=== PATIENT | female | born 1990 | race Caucasian/White ===

== ENCOUNTER 2017-05-02 20:08 | Inpatient (IN) | payer MEDICAID ==
[2017-05-02] MEDS ORDERED: HYDROCODONE/APAP (5/325) TAB PO (23:00)
[2017-05-02] MEDS ORDERED: METHYLERGONOVINE 0.2 MG INJ IM (23:00)
[2017-05-02] MEDS ORDERED: MISOPROSTOL 200 MCG TAB PR (23:00)
[2017-05-02] MEDS ORDERED: BUTORPHANOL 2 MG INJ IV (23:00)
[2017-05-02] MEDS ORDERED: OXYTOCIN 30 UNITS/LR 500 ML IV (23:00)
[2017-05-02] MEDS ORDERED: IBUPROFEN 600 MG TAB PO (23:00)
[2017-05-02] MEDS: LACTATED RINGER'S 1,000 ML IV (23:31)
[2017-05-02 23:42] LABS: ADD MAN DIFF? NO
[2017-05-02 23:50] LABS: BASOPHILS % 0.4 % (0.0-2.0); EOSINOPHILS # 0.1 10^3/ul (0.0-0.5); EOSINOPHILS % 0.8 % (0.0-7.0); HEMATOCRIT 38.6 % (37.0-47.0); HEMOGLOBIN 13.4 g/dl (12.0-16.0); LYMPHOCYTES # 3.4 10^3/ul (0.8-2.9); LYMPHOCYTES % 29.6 % (15.0-51.0); MEAN CORPUSCULAR HGB CONC 34.7 g/dl (32.0-37.0); MEAN CORPUSCULAR VOLUME 92.1 fl (82.0-101.0); MEAN PLATELET VOLUME 10.9 fl (7.4-10.4); MONOCYTES % 8.8 % (0.0-11.0); NEUTROPHIL # 6.7 10^3/ul (1.6-7.5); NEUTROPHILS % 59.5 % (39.0-77.0); PLATELET COUNT 140 10^3/UL (140-415); RED BLOOD COUNT 4.19 10^6/ul (4.20-5.40); RED CELL DISTRIBUTION WIDTH 13.1 % (11.5-14.5)
[2017-05-02 23:50] LABS: WHITE BLOOD COUNT 11.3 10^3/ul (4.8-10.8)
[2017-05-03] LABS: POSITIVE DIFF @See below
[2017-05-03 00:40] LABS: HEPATITIS B SURFACE ANTIGEN NEGATIVE (NEGATIVE)
[2017-05-03] MEDS: BUTORPHANOL 2 MG INJ IV (01:04)
[2017-05-03 03:45] LABS: INR 0.88; PT RATIO 0.9
[2017-05-03 03:48] LABS: PARTIAL THROMBOPLASTIN TIME 26.3 Sec (25.0-35.0)
[2017-05-03] MEDS: LACTATED RINGER'S 1,000 ML IV ×2 (07:28→09:43)
[2017-05-03] MEDS ORDERED: FENTAnyl 2MCG/ML-ROPIV 0.2% 100 ML (09:35)
[2017-05-03] MEDS: OXYTOCIN 30 UNITS/LR 500 ML IV ×3 (12:47→13:27)
[2017-05-03] MEDS: CARBOPROST 250 MCG INJ IM (12:48)
[2017-05-03] MEDS: LIDOCAINE 1% (MPF) 30 ML INJ INJ (13:28)
[2017-05-03] MEDS ORDERED: NALOXONE (0.4 MG/ML) INJ IV (14:00)
[2017-05-03] MEDS: FENTAnyl 2MCG/ML-ROPIV 0.2% 100 ML BAG EPI (14:21)
[2017-05-03 15:06] LABS: RAPID PLASMA REAGIN NONREACTIVE (NR)
[2017-05-03] MEDS: LACTATED RINGER'S 1,000 ML IV* (15:54)
[2017-05-03] MEDS ORDERED: ZOLPIDEM 5 MG TAB PO (16:00)
[2017-05-03] MEDS ORDERED: HYDROCODONE/APAP (5/325) TAB PO ×2 (16:00)
[2017-05-03] MEDS ORDERED: MISOPROSTOL 200 MCG TAB PR (16:00)
[2017-05-03] MEDS ORDERED: DIBUCAINE 1% 30 GM OINT TOP (16:00)
[2017-05-03] MEDS ORDERED: METHYLERGONOVINE 0.2 MG INJ IM (16:00)
[2017-05-03] MEDS ORDERED: OXYTOCIN 30 UNITS/LR 500 ML IV (16:00)
[2017-05-03] MEDS ORDERED: CARBOPROST 250 MCG INJ IM (16:00)
[2017-05-03] MEDS: BENZOCAINE 20% 56 ML SPRAY TOP (16:52)
[2017-05-03] MEDS: WITCH HAZEL/GLYCERIN PAD PR (16:52)
[2017-05-03] MEDS: LANOLIN 7 GM TUBE TOP (16:52)
[2017-05-03] MEDS: CEPHALEXIN 500 MG CAP PO (17:21)
[2017-05-03] MEDS: IBUPROFEN 600 MG TAB PO (17:21)
[2017-05-03] MEDS: SENNA/DOCUSATE NA (8.6MG/50MG) TAB PO (21:00)
[2017-05-04] MEDS: CEPHALEXIN 500 MG CAP PO ×4 (00:14→17:53)
[2017-05-04] MEDS: IBUPROFEN 600 MG TAB PO ×4 (00:14→17:54)
[2017-05-04 08:50] LABS: ADD MAN DIFF? NO
[2017-05-04] MEDS: MAGNESIUM HYDROXIDE 30ML CUP PO ×2 (09:00→21:00)
[2017-05-04] MEDS: SENNA/DOCUSATE NA (8.6MG/50MG) TAB PO ×2 (09:00→21:00)
[2017-05-04 09:03] LABS: BASOPHILS % 0.3 % (0.0-2.0); EOSINOPHILS # 0.1 10^3/ul (0.0-0.5); EOSINOPHILS % 0.6 % (0.0-7.0); HEMATOCRIT 28.5 % (37.0-47.0); HEMOGLOBIN 9.7 g/dl (12.0-16.0); LYMPHOCYTES % 20.1 % (15.0-51.0); MEAN CORPUSCULAR HEMOGLOBIN 31.5 pg (29.0-33.0); MEAN CORPUSCULAR VOLUME 92.5 fl (82.0-101.0); MONOCYTE # 1.5 10^3/ul (0.3-0.9); MONOCYTES % 9.8 % (0.0-11.0); NEUTROPHIL # 10.2 10^3/ul (1.6-7.5); NEUTROPHILS % 68.5 % (39.0-77.0); PLATELET COUNT 118 10^3/UL (140-415); RED BLOOD COUNT 3.08 10^6/ul (4.20-5.40); RED CELL DISTRIBUTION WIDTH 13.2 % (11.5-14.5)
[2017-05-04 09:03] LABS: WHITE BLOOD COUNT 14.8 10^3/ul (4.8-10.8)
[2017-05-05] MEDS: CEPHALEXIN 500 MG CAP PO ×3 (00:10→12:49)
[2017-05-05] MEDS: IBUPROFEN 600 MG TAB PO ×3 (00:10→12:49)
[2017-05-05] MEDS: MAGNESIUM HYDROXIDE 30ML CUP PO (09:00)
[2017-05-05] MEDS ORDERED: VARICELLA VACCINE LIVE/PF 1,350 UNIT/0.5 ML ML SC* (09:00)
[2017-05-05] MEDS ORDERED: MEASLES,MUMPS,RUBELLA VACCINE INJ SC* (09:00)
[2017-05-05] MEDS ORDERED: DIPHTH/TET/ACEL PERTUSS (ADULT) 0.5 ML VIAL IM* (09:00)
[2017-05-05] MEDS: SENNA/DOCUSATE NA (8.6MG/50MG) TAB PO (09:00)
[2017-05-05 11:18] LABS: ADD MAN DIFF? NO
[2017-05-05 11:25] LABS: BASOPHILS % 0.3 % (0.0-2.0); EOSINOPHILS # 0.2 10^3/ul (0.0-0.5); EOSINOPHILS % 1.4 % (0.0-7.0); HEMATOCRIT 30.4 % (37.0-47.0); HEMOGLOBIN 10.2 g/dl (12.0-16.0); LYMPHOCYTES % 23.8 % (15.0-51.0); MEAN CORPUSCULAR HEMOGLOBIN 31.5 pg (29.0-33.0); MEAN CORPUSCULAR HGB CONC 33.6 g/dl (32.0-37.0); MEAN CORPUSCULAR VOLUME 93.8 fl (82.0-101.0); MEAN PLATELET VOLUME 10.1 fl (7.4-10.4); MONOCYTE # 0.9 10^3/ul (0.3-0.9); MONOCYTES % 7.3 % (0.0-11.0); NEUTROPHIL # 8.3 10^3/ul (1.6-7.5); NEUTROPHILS % 66.5 % (39.0-77.0); PLATELET COUNT 155 10^3/UL (140-415); RED BLOOD COUNT 3.24 10^6/ul (4.20-5.40); RED CELL DISTRIBUTION WIDTH 13.4 % (11.5-14.5)
[2017-05-05 11:25] LABS: WHITE BLOOD COUNT 12.4 10^3/ul (4.8-10.8)
== END 2017-05-05 16:15 | disposition home or self-care (01) | DRG 775 ==
LOC: OBT 20:08 → PP1 05-03 15:14 → L-D 20:10 → OBT 22:45 → L-D 22:45
PROVIDERS: Obstetrics & Gynecology
PROC: 4A1HXCZ Monitoring of Products of Conception, Cardiac Rate, External Approach (ICD-10-PCS; 2017-05-02)
PROC: 10E0XZZ Delivery of Products of Conception, External Approach (ICD-10-PCS; principal; 2017-05-03)
PROC: 0HQ9XZZ Repair Perineum Skin, External Approach (ICD-10-PCS; 2017-05-03)
DX: O70.0 First degree perineal laceration during delivery (principal); Z37.0 Single live birth; Z3A.38 38 weeks gestation of pregnancy
CPT/HCPCS: 62319; 85025; 85610; 85730; 86592; 86850; 86900; 86901; 87340